=== PATIENT | female | born 1985 | race Caucasian/White ===

== ENCOUNTER 2021-06-01 12:40 | Emergency (ER) | payer MEDICAID, SELFPAY ==
--- NOTE | ~2021-06-01 | XR_ITS ---
EXAMINATION: XR CERVICAL SPINE CLINICAL INFORMATION: Neck pain. COMPARISON: None TECHNIQUE: 3 views of the cervical spine were obtained. FINDINGS: There are no prevertebral soft tissue or bony abnormalities demonstrated. No compression fractures or subluxations are identified. Alignment is maintained at the atlanto-axial articulation. The disc spaces are preserved. No endplate changes are seen. There are bilateral C7 cervical chart ribs. The prevertebral soft tissues are normal. The foramina are patent. XR/XR cervical spine 3V IMPRESSION: Unremarkable cervical spine exam except for short C7 cervical ribs.
--- NOTE | ~2021-06-01 | XR_ITS ---
EXAMINATION: XR KNEE, LEFT CLINICAL INFORMATION: Left knee pain COMPARISON: None TECHNIQUE: Four views of the left knee. FINDINGS: Bones and soft tissues are normal. No fracture or joint effusion. Alignment is anatomic. Joint spaces are well maintained. No abnormal soft tissue calcification. XR/XR knee LT 4V IMPRESSION: Unremarkable left knee exam.
[2021-06-01 12:43] VITALS: BP 128/88; PULSE 80
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
[2021-06-01 16:27] VITALS: BP 114/55; PULSE 83; RESP 18; TEMP 37; O2SAT 100; BMI 24.2
== END 2021-06-01 16:36 | disposition home or self-care (01) ==
LOC: HO.ED 15:46
PROVIDERS: Emergency Provider Emergency Medicine; PCP Internal Medicine
DX: S13.4XXA Sprain of ligaments of cervical spine, initial encounter (principal); S16.1XXA Strain of muscle, fascia and tendon at neck level, initial encounter; V43.52XA Car driver injured in collision with other type car in traffic accident, initial encounter; Y93.89 Activity, other specified; Y92.414 Local residential or business street as the place of occurrence of the external cause; Y99.9 Unspecified external cause status
CPT/HCPCS: 72040; 73564; 99283

== ENCOUNTER → 2021-10-13 13:20 | Outpatient (BNVA) | payer MEDICAID, SELFPAY | PROVIDERS: PCP Internal Medicine; Visit Provider Surgery Vascular Surgery | DX: I83.11 Varicose veins of right lower extremity with inflammation (principal) | CPT/HCPCS: 99202 ==

== ENCOUNTER 2022-01-25 12:29 | Outpatient (REF) | payer MEDICAID, SELFPAY ==
--- NOTE | ~2022-01-25 | US_ITS ---
EXAMINATION: US LOWER EXTREMITY VENOUS (REFLUX EXAM), BILATERAL CLINICAL INDICATION: This is a 36-year-old female with venous insufficiency and varicose veins. COMPARISON: None. TECHNIQUE: Color flow triplex imaging and compression Doppler was performed to evaluate both the deep and the superficial systems bilaterally. To evaluate the superficial system, the examination was performed in the upright position. Color-flow Doppler ultrasound and compression ultrasound were utilized. In addition, maneuvers were utilized to demonstrate reflux. FINDINGS: 1. DEEP VENOUS ULTRASOUND OF THE RIGHT LOWER EXTREMITY: Common Femoral Vein: Compressible, normal respiratory variation and augmented flow. Femoral vein: Compressible, normal color flow and augmentation. Popliteal Vein: Compressible, normal augmentation. Deep Reflux: There is no evidence of reflux in the deep system in either the common femoral vein or the popliteal vein. There is no evidence of a Bird's cyst. 2. SUPERFICIAL ULTRASOUND WITH DOPPLER OF RIGHT LOWER EXTREMITY: GREAT SAPHENOUS VEIN: There are lateral and medial branches at the origin of the saphenofemoral junction. Saphenofemoral Junction: 0.5 cm lateral segment without reflux. 0.4 cm medial segment without reflux. Proximal thigh: 0.2 cm lateral segment without reflux. 0.2 cm medial segment without reflux. Mid Thigh: 0.2 cm this is no longer bifurcated at this level and downward. There is no reflux. Above Knee: 0.2 cm. There is no reflux. Below Knee: 0.1 cm Mid Calf: 0.2 cm Ankle: 0.2 cm GSV REFLUX: No evidence of significant reflux. DUPLICATED GREAT SAPHENOUS VEIN: None SMALL SAPHENOUS VEIN: Proximal: 0.5 cm. The reflux time is 3003 and 76 ms per Distal: 0.5 cm. The reflux time is 3008 ms. SSV REFLUX: There is reflux in the proximal segment and throughout the small saphenous vein. VEIN OF GIACOMINI: None Imaged. PERFORATORS: 0.3 cm in the mid thigh without reflux. VARICOSITIES: 0.3 cm laterally in the thigh with greater than 3 seconds of reflux. 3. DEEP VENOUS ULTRASOUND OF THE LEFT LOWER EXTREMITY: Common Femoral Vein: Compressible, normal respiratory variation and augmented flow. Femoral Vein: Compressible, normal color flow and augmentation. Popliteal Vein: Compressible but with 780 ms of reflux. Deep Reflux: There is evidence of reflux in the deep system in either the common femoral vein or the popliteal vein. There is no evidence of a Bird's cyst. 4. SUPERFICIAL ULTRASOUND WITH DOPPLER OF LEFT LOWER EXTREMITY: GREAT SAPHENOUS VEIN: Saphenofemoral Junction: 0.5 cm Mid Thigh: 0.2 cm Above Knee: 0.3 cm Below Knee: 0.2 cm Mid Calf: 0.2 cm Ankle: 0.2 cm GSV REFLUX: No evidence of reflux. DUPLICATED GREAT SAPHENOUS VEIN: There is a 0.3 cm lateral duplicated great saphenous vein without reflux to SMALL SAPHENOUS VEIN: Proximal: 0.2 cm Distal: 0.3 cm SSV REFLUX: No evidence of reflux. VEIN OF GIACOMINI: None Imaged. PERFORATORS: None Imaged VARICOSITIES: None Imaged US/US venous duplex LE BI IMPRESSION: 1. There is a patent duplicated right great saphenous vein without evidence of significant reflux. 2. There is a patent right small saphenous vein with reflux throughout. 3. There are some varicose veins in the mid thigh which measures 0.3 cm. 4. There is a patent left great saphenous vein without evidence of reflux. 5. There is a patent left small saphenous vein without evidence of reflux.
== END 2022-01-25 12:30 | disposition home or self-care (01) ==
LOC: HO.US 12:29
PROVIDERS: Visit Provider Surgery Vascular Surgery
DX: I83.11 Varicose veins of right lower extremity with inflammation (principal); I83.12 Varicose veins of left lower extremity with inflammation
CPT/HCPCS: 93970

== ENCOUNTER → 2022-01-28 14:20 | Outpatient (BNVA) | payer MEDICAID, SELFPAY | PROVIDERS: PCP Internal Medicine; Visit Provider Surgery Vascular Surgery | DX: I83.11 Varicose veins of right lower extremity with inflammation (principal) | CPT/HCPCS: 99212 ==

== ENCOUNTER → 2022-02-26 12:29 | Outpatient (BNVA) | payer MEDICAID, SELFPAY | PROVIDERS: PCP Internal Medicine; Visit Provider Surgery Vascular Surgery | DX: I83.11 Varicose veins of right lower extremity with inflammation (principal) | CPT/HCPCS: 36475 ==

== ENCOUNTER 2022-03-01 11:43 | Outpatient (REF) | payer MEDICAID, SELFPAY ==
--- NOTE | ~2022-03-01 | US_ITS ---
EXAMINATION: US VENOUS ULTRASOUND WITH DOPPLER LOWER EXTREMITY, RIGHT CLINICAL INFORMATION: Right leg pain. 3 days status post right radiofrequency ablation of the lesser saphenous vein. COMPARISON: 01/25/2022 TECHNIQUE: Ultrasound of the deep veins was performed from the hip to the calf with compression sonography and color and pulse Doppler assessment. Spectral analysis with color-flow imaging was performed. FINDINGS: There is normal venous compression and respiratory variation and augmented flow. The visualized common femoral vein, superficial femoral vein, profunda femoral vein, popliteal vein, and the trifurcation region shows no evidence of deep venous thrombosis. There is no significant popliteal fossa cyst. No popliteal artery aneurysm. Patent greater saphenous vein. There is occlusion of the small saphenous vein status post RFA. US/US venous duplex LE RT IMPRESSION: No acute DVT demonstrated in the right lower extremity. No extension of thrombus to the saphenofemoral junction. Right superficial saphenous vein occlusion status post RFA.
== END 2022-03-01 11:44 | disposition home or self-care (01) ==
LOC: HO.US 11:43
PROVIDERS: Visit Provider Surgery Vascular Surgery
DX: M79.604 Pain in right leg (principal)
CPT/HCPCS: 93971

== ENCOUNTER → 2022-03-09 11:17 | Outpatient (BNVA) | payer MEDICAID, SELFPAY | PROVIDERS: PCP Internal Medicine; Visit Provider Surgery Vascular Surgery | DX: I83.11 Varicose veins of right lower extremity with inflammation (principal) | CPT/HCPCS: 99212 ==

== ENCOUNTER → 2022-11-10 09:03 | Outpatient (REF) | payer MEDICAID, SELFPAY ==
--- NOTE | 2022-11-10 09:08 | HM_ITS ---
* Total monitoring time approximately 1 day. * Average ventricular rate 85/Min. Range 62 to 154/Min. * About 18% of the time, rate > 100/Min. * Very rare PACs. * No significant pauses or AV blocks. * No patient markers or events in diary. MTDD
== END ==
LOC: HO.CARD 09:03
PROVIDERS: PCP Internal Medicine; Visit Provider Internal Medicine
DX: R42 Dizziness and giddiness (principal); R55 Syncope and collapse; R00.2 Palpitations
CPT/HCPCS: 93225

== ENCOUNTER 2024-01-17 11:17 | Emergency (ER) | payer MEDICAID, SELFPAY ==
--- NOTE | ~2024-01-17 | XR_ITS ---
EXAMINATION: XR ANKLE, RIGHT CLINICAL INFORMATION: Lateral pain. Patient states they fell and twisted ankle. COMPARISON: None available. TECHNIQUE: AP, lateral, and mortise views of the right ankle. FINDINGS: Bone mineralization is normal. Radiopaque marker placed by technologist to indicate the area of concern as indicated by the patient along the lateral aspect of the distal fibula. Soft tissue swelling at the ankle, particularly at the lateral aspect. No displaced fracture of the distal fibula appreciated. Alignment maintained. XR/XR ankle RT min 3V IMPRESSION: 1. Soft tissue swelling at the ankle, particularly at the lateral aspect. No displaced fracture of the distal fibula appreciated. Alignment maintained. 2. Recommend follow-up imaging in 10-14 days if fracture is suspected. This study was presented today January 17, 2024 for interpretation. Stat results provided at this time as requested by referring provider.
--- NOTE | 2024-01-17 11:22 | ED_ITS ---
HPI - Extremity Injury (Lower) General Chief Complaint: Fall Stated Complaint: fall r ankle injury Time Seen by Provider: 01/17/24 11:22 Source: patient Mode of arrival: ambulatory Limitations: no limitations History of Present Illness ED Provider: jeffrey MAYNARD Narrative: Patient is a 38-year old female 27.5 weeks presenting to the emergency department with complaint of a right lateral ankle pain after a trip and fall prior to arrival. States was walking on the sidewalk looking at a turtle she just bought and fell due to the sidewalk being uneven. Landed on her bottom. Denies head strike or loss of consciousness. Denies neck or back pain. Has felt movement since the fall, denies any abdominal pain or cramping, denies vaginal bleeding or discharge. MD complaint: ankle injury Onset (ago): minute(s) Injury: Right: ankle Type of Injury: unknown Place: street/outdoors Severity: moderate Associated symptoms: snap/pop sensation Treatments prior to arrival: cold therapy Related Data Previous Rx's ?Medication ?Instructions ?Recorded cyclobenzaprine 10 mg tablet 10 mg PO BEDTIME PRN muscle spasm 06/01/21 #7 tabs lidocaine 5 % topical patch 1 patch topical DAILY PRN pain #15 06/01/21 ea naproxen 500 mg tablet 500 mg PO BID PRN pain #14 tabs 06/01/21 Allergies Allergy/AdvReac Type Severity Reaction Status Date / Time latex [LATEX] Allergy Unknown RASH Verified 01/17/24 11:27 penicillin G Allergy Unknown Unknown Verified 01/17/24 11:27 Penicillins [PCN] Allergy Unknown HIVES Verified 01/17/24 11:27 Review of Systems Review of Systems: As per HPI. Yes all other systems are reviewed and are negative Constitutional: Constitutional: Reports as per HPI [facility] Past Medical History Medical History No known health problems Social History Social History Advance Directives: No Advance Directives Information Provided: Yes Do you have a plan to hurt others: No Plan Physical Exam 2 Vital Signs: Vital Signs: Last Vital Signs Temp 98.2 F 01/17/24 11:26 Pulse 85 01/17/24 11:26 Resp 16 01/17/24 11:26 BP 115/53 L 01/17/24 11:26 Pulse Ox 99 01/17/24 11:26 O2 Del Method Room Air 01/17/24 11:26 BMI result Body Mass Index 32.3 Vital signs have been reviewed and appear to be correct. Blood pressure normal. Heart rate normal. Respiratory rate normal. Temperature normal. Oxygen saturation normal. Const: General: cooperative, healthy appearing and no acute distress Orientation/consciousness: oriented to person, oriented to place, oriented to time and patient oriented x3 Limitations: no limitations HEENT: Head: Yes normocephalic and Yes atraumatic Ears: external ears normal General nose exam: Normal external nose present Face and sinus: Yes face symmetric Mouth: oropharynx normal and moist mucous membranes Throat: Yes uvula midline Eyes: Pupils: Equal, round and reactive pupils present Neck: Neck: Yes normal visual inspection and Yes supple Resp: Effort & Inspection: normal respiratory effort and able to speak in complete sentences Auscultation: clear to auscultation bilaterally Cardio: Rate: regular rate Rhythm: regular rhythm Heart sounds: S1 normal heart sound present and S2 normal heart sound present GI: Palpation (GI): Soft to palpation and nontender Auscultation: normoactive bowel sounds : General: Yes no CVA tenderness Back/Spine/Pelvis: Back: no CVA tenderness Skin: General skin exam: elasticity normal and turgor normal Neuro: General: oriented to person, oriented to place, oriented to time, patient oriented x3, moves all extremities, no focal motor deficits and CN's II- XI intact bilaterally Cranial nerves: Yes Equal, round and reactive pupils present Cognition (Neuro): normal cognition Extrem: General: Yes full ROM, Yes no pedal edema and Yes no calf tenderness Right lower extremity: ankle Details: tenderness Location: of the lateral malleolus, swelling Details: laterally (mild) and normal ROM; no ecchymosis and foot Details: vascular exam Details: dorsalis pedis pulse present and posterior tibial pulse present Psych: Mental Status: mental status grossly normal Affect: normal affect Thought process: Normal thought process present Medications Administered Discontinued Medications Generic Name Dose Route Start Last Admin Trade Name Freq PRN Reason Stop Dose Admin Acetaminophen 650 mg 01/17/24 11:48 01/17/24 12:20 Acetaminophen 325 Mg Tablet PO 01/17/24 11:49 650 mg ONCE ONE Administration Medical Decision Making Medical Decision Making [facility] Narrative: Patient is a 38-year old female 27.5 weeks presenting to the emergency department with complaint of a right lateral ankle pain after a trip and fall prior to arrival. On exam patient is awake, A+Ox3, VS WNL, afebrile, normal neurological exam without focal deficits, physical exam findings as above. Giv en reported symptoms and physical exam findings, initial differential includes rigth ankle sprain, strain, fracture. Unlikely dislocation. X-ray notable for no acute fracture or dislocation. My interpretation is in agreement with the radiologist's interpretation. FHR within normal limits. Patient placed in air stirrup splint for sprain. Advised RICE, Tylenol for pain, follow up with PCP. Return precautions discussed. Patient verbalized understanding of and agreement with plan. Differential Diagnosis Differential Diagnoses: The differential diagnosis associated with the presentation includes as per [facility] Independent Interpretation I performed an independent interpretation of an: Plain X-Ray Interpretation: no acute fracture right ankle Radiology Impression Discussion of test interpretation with radiology: I have reviewed the radiologist's reading. Radiologist Impression: XR/XR ankle RT min 3V IMPRESSION: 1. Soft tissue swelling at the ankle, particularly at the lateral aspect. No displaced fracture of the distal fibula appreciated. Alignment maintained. 2. Recommend follow-up imaging in 10-14 days if fracture is suspected. This study was presented today January 17, 2024 for interpretation. Stat results provided at this time as requested by referring provider. External Record Review External record reviewed: Inpatient record, Office record and Outpatient record Discharge Plan Discharge Clinical Impression: Right ankle sprain Patient Disposition: Home, Self-Care Instructions: Ankle Sprain (DC), R.I.C.E. Treatment (ED), Ankle Stirrup Splint (ED) Additional Instructions: You have been evaluated in the emergency department today for ankle pain. Your evaluation did not find evidence of medical conditions requiring emergent int ervention at this time. We have provided a splint for you to use while your ankle heals. Please rest, ice, and elevate your ankle, and resume normal activities as tolerated. We recommend you take 650mg Tylenol every 6 hours as needed for pain. Please schedule an appointment for follow-up with your primary care provider this week. Return to the emergency department if you experience worsening pain, numbness, tingling, change of color in your ankle/foot, or any other concerning symptoms. Prescriptions: No Action cyclobenzaprine 10 mg tablet 10 mg PO BEDTIME PRN (Reason: muscle spasm) Qty: 7 0RF lidocaine 5 % adhesive patch,medicated 1 patch topical DAILY PRN (Reason: pain) Qty: 15 0RF Rx Instructions: leave on most painful area for up to 12 hrs naproxen 500 mg tablet 500 mg PO BID PRN (Reason: pain) Qty: 14 0RF Rx Instructions: Take with food Print Language: Wolof
[2024-01-17 11:26] VITALS: BP 108/56; BP 115/53; PULSE 85; PULSE 90; RESP 16; TEMP 36.8; O2SAT 100; O2SAT 99; BMI 32.3
[2024-01-17] MEDS: Acetaminophen 325 MG TABLET 650 MG PO (12:20)
[2024-01-17 14:26] VITALS: BP 102/60; PULSE 91; RESP 18; TEMP 36.7; O2SAT 99
--- NOTE | 2024-01-17 14:26 | PC.NURSE ---
air cast applied
== END 2024-01-17 14:28 | disposition home or self-care (01) ==
PROVIDERS: Emergency Provider Emergency Medicine; PCP Internal Medicine
DX: O9A.212 Injury, poisoning and certain other consequences of external causes complicating pregnancy, second trimester (principal); S93.401A Sprain of unspecified ligament of right ankle, initial encounter; Z3A.27 27 weeks gestation of pregnancy; W01.0XXA Fall on same level from slipping, tripping and stumbling without subsequent striking against object, initial encounter; Y93.9 Activity, unspecified; Y92.9 Unspecified place or not applicable; Y99.9 Unspecified external cause status
CPT/HCPCS: 73610; 99283; 99284